=== PATIENT | male | born 1965 | race Caucasian/White ===

== ENCOUNTER 2017-01-14 17:30 | Emergency (ER) | payer BC ==
--- NOTE | 2017-01-14 18:56 | RAD ---
INDICATION: Fever and cough COMPARISON: None. TECHNIQUE: Single AP portable view of the chest was obtained. FINDINGS: Image quality is compromised due to the relative inferiority of a portable chest x-ray. The heart and mediastinum exhibit normal size and contour. The lungs are grossly clear. There is no evidence of a large pleural effusion. Visualized bones are normal for the patient's age. IMPRESSION: No radiographic evidence for acute cardiopulmonary abnormality on this portable chest x-ray.
[2017-01-14 19:09] LABS: Hematocrit 54 % (42-52); Hemoglobin 18.5 g/dl (14.0-18.0); Mean Corpuscular HGB Conc 34 g/dl (31-36); Mean Corpuscular Hemoglobin 33 pg (27-31); Mean Corpuscular Volume 96 fL (80-94); Mean Platelet Volume 8 um3 (7.4-10.4); Red Blood Count 5.64 10^6/ul (4.0-5.4); Red Cell Distribution Width 13 % (10.5-15); White Blood Count 8.2 10^3/ul (3.5-10.8)
[2017-01-14 19:10] LABS: Add Diff/Slide Review? Slide Review Added; Comments Flag Yes
[2017-01-14 19:20] LABS: Albumin 3.9 g/dL (3.2-5.2); BUN/Creatinine Ratio 11.9 (8-20); Calcium 9.8 mg/dL (8.6-10.3); EGFR African American 77.3 (>60); EGFR Non-African American 60.1 (>60); Globulin 3.9 g/dL (2-4); Potassium 3.9 mmol/L (3.5-5.0); Total Bilirubin 0.5 mg/dL (0.2-1.0); Total Protein 7.8 g/dL (6.4-8.9)
[2017-01-14] MEDS ORDERED: NS 0.9% 1000 ML* 2,000 ML IV ONE (19:36)
[2017-01-14] MEDS ORDERED: Acetaminophen TAB* 325 MG PO ONE (20:52)
[2017-01-14 20:58] LABS: C Reactive Protein 91.51 mg/L (< 5.00)
[2017-01-14 22:00] LABS: Erythrocyte Sed Rate 28 mm/Hr (0-20)
[2017-01-14] MEDS ORDERED: Lidocaine 1% INJ* 10 MG/ML 30 ML SDV ONE (22:06)
[2017-01-14] MEDS ORDERED: Ketorolac INJ* 30 MG/ML 1 ML VIAL IV PUSH ONE (22:35)
[2017-01-14 22:46] LABS: CSF Glucose 64 mg/dL (40-70)
[2017-01-14 22:55] VITALS: BP 135/85
[2017-01-14 23:12] LABS: BF RBC Count #1 0; BF RBC Count #2 0; BF WBC Count #1 1; BF WBC Count #2 1; Body Fluid Appearance Clear; RBC counts within 6%? Yes; WBC counts within 15%? Yes
[2017-01-14 23:21] LABS: Body Fluid Total Cells Counted 22
[2017-01-15 00:23] LABS: Body Fluid WBC 1 /mcL
[2017-01-15] MEDS ORDERED: Sulfamethox/Trimethoprim DS 800/160* TAB PO ONE (00:24)
[2017-01-15] MEDS ORDERED: Cephalexin CAP* 500 MG PO ONE (00:24)
[2017-01-17 15:11] LABS: Lyme Disease IgG Ab WB Negative (Negative)
--- NOTE | 2017-01-31 15:29 | ED ---
Maren Boss Edward, scribed for Xavi Benavidez MD on 01/14/17 at 1819 . Headache - HPI Summary HPI Summary: 51 y/o male presents to c/o a sudden onset, constant MATSON starting three days ago. The next day the patient had nausea, fatigue and the MATSON became severe. Yesterday the patient noticed red raised areas on the L ankle, R forearm, forehead, inside of thigh, and back. Per triage, the pt has felt feverish for the past three days. Associated sx: body aches, chills, diaphoresis, neck stiffness today, intermittent episodes of severe pain at the ribs lasting a couple of seconds, starting 3 weeks ago. Denies V/D, sore throat, photophobia, confusion and rhinorrhea. Patient lives in the [facility] and has had sick contact in his family. - History Of Current Complaint Chief Complaint: EDHeadache Stated Complaint: HEAD ACHE x3DAYS Time Seen by Provider: 01/14/17 18:15 Hx Obtained From: Patient Onset/Duration: Sudden Onset, Started days ago - Three days ago Initially Headache Was: Moderate Currently Pain Is: Severe Timing: Constant Associated Signs And Symptoms: Nausea, Fever - around 100, Neck Stiffness, Other (Noted In Comments) - body aches, chills, sweats, fatigue. Red spots on L ankle, R forearm, forehead, back and chest. No vomiting, diarrhea, sore throat, rhinorrhea, photophobia, or confusion - Allergies/Home Medications Allergies/Adverse Reactions: Allergies Allergy/AdvReac Type Severity Reaction Status Date / Time No Known Allergies Allergy Verified 09/14/15 12:38 PMH/Surg Hx/FS Hx/Imm Hx Previously Healthy: No Endocrine/Hematology History: Denies: Hx Diabetes Cardiovascular History: Denies: Hx Hypertension, Hx Pacemaker/ICD GI History: Reports: Hx Gastroesophageal Reflux Disease - PRN OMEPRAZOLE Musculoskeletal History: Reports: Hx Arthritis - RIGHT SHOULDER Sensory History: Reports: Hx Contacts or Glasses - GLASSES Denies: Hx Hearing Aid Opthamlomology History: Reports: Hx Contacts or Glasses - GLASSES Psychiatric History: Denies: Hx Panic Disorder - Surgical History Surgery Procedure, Year, and Place: RIGHT SHOULDER SURGERY- 8 YEARS AGO[place]. [place]03/[place] [place] Anesthesia Reactions: No - Immunization History Date of Tetanus Vaccine: unknown Date of Influenza Vaccine: UTD Infectious Disease History: No Infectious Disease History: Denies: Traveled Outside the [place] in Last 30 Days - Family History Known Family History: Positive: Cardiac Disease, Other - CA Negative: Diabetes - Social History Alcohol Use: Weekly Alcohol Amount: 4-6 BEERS PER WEEK Substance Use Type: Reports: Marijuana Smoking Status (MU): Current Some Day Smoker Amount Used/How Often: "CASUAL SMOKER"X 15 YEARS OFF AND ON Review of Systems Positive: Fever, Chills, Fatigue, Skin Diaphoresis, Other - Neck stiffness Negative: Photophobia, Erythema Negative: Sore Throat, Nasal Discharge - No rhinorrhea Negative: Chest Pain Negative: Shortness Of Breath, Cough Positive: Nausea. Negative: Abdominal Pain, Vomiting, Diarrhea Negative: dysuria, hematuria Musculoskeletal: Other - Body aches Positive: Arthralgia - Intermittent pain at ribs. Negative: Myalgia, Edema Positive: Rash - Red raised spots on L ankle, R forearm, forehead, chest and back Neurological: Other - No dizziness, no confusion Positive: Headache All Other Systems Reviewed And Are Negative: Yes Physical Exam - Summary Physical Exam Summary: Constitutional: Well-developed, Well-nourished, Alert. (-) Distressed. Skin: Warm, Dry. Flushed. Ecchymotic, raised, erythematous region @ L ankle. Smaller erythematous raised regions at the R arm, back and chest. HENT: Normocephalic; Atraumatic Eyes: Conjunctiva normal Neck: Musculoskeletal ROM normal neck. (-) JVD, (-) Stridor, (-) Tracheal deviation. No obvious meningismus. Cardio: Rhythm regular, rate normal, Heart sounds normal; Intact distal pulses; The pedal pulses are 2+ and symmetric. Radial pulses are 2+ and symmetric. (-) Murmur Pulmonary/Chest wall: Effort normal. (-) Respiratory distress, (-) Wheezes, (-) Rales Abd: Soft, (-) Tenderness, (-) Distension, (-) Guarding, (-) Rebound Musculoskeletal: (-) Edema Lymph: (-) Cervical adenopathy Neuro: Alert, Oriented x3 Psych: Mood and affect Normal Triage Information Reviewed: Yes Vital Signs On Initial Exam: Initial Vitals Temp Pulse Resp BP Pulse Ox 100.2 F 98 18 137/97 97 01/14/17 17:54 01/14/17 17:54 01/14/17 17:54 01/14/17 17:54 01/14/17 17:54 Vital Signs Reviewed: Yes - Sebas Coma Scale Coma Scale Total: 15 Procedures - Lumbar Puncture Position: Sitting Aseptic Technique: Local Anesthesia Anesthesia Used: 1.0% Lido Spinal Needle Used: 22 Gauge - 3.5 inch Lumbar Puncture Note: Failed attempt x2 laying on L side. Successful 1st time sitting up. L4 L5, clear fluid. Obtained 4 ml. Diagnostics - Vital Signs Vital Signs Temp Pulse Resp BP Pulse Ox 01/14/17 17:54 100.2 F 98 18 137/97 97 - Laboratory Lab Results: Lab Results 01/14/17 01/14/17 01/14/17 Range/Units 18:53 18:53 18:53 WBC 8.2 (3.5-10.8) 10^3/ul RBC 5.64 H (4.0-5.4) 10^6/ul Hgb 18.5 H (14.0-18.0) g/dl Hct 54 H (42-52) % MCV 96 H (80-94) fL MCH 33 H (27-31) pg MCHC 34 (31-36) g/dl RDW 13 (10.5-15) % Plt Count 231 (150-450) 10^3/ul MPV 8 (7.4-10.4) um3 Neut % (Auto) 60.0 (38-83) % Lymph % (Auto) 24.0 L (25-47) % Wagoner % (Auto) 13.3 H (1-9) % Eos % (Auto) 1.7 (0-6) % Baso % (Auto) 1.0 (0-2) % Absolute Neuts (auto) 4.9 (1.5-7.7) 10^3/ul Absolute Lymphs (auto) 2.0 (1.0-4.8) 10^3/ul Absolute Monos (auto) 1.1 H (0-0.8) 10^3/ul Absolute Eos (auto) 0.1 (0-0.6) 10^3/ul Absolute Basos (auto) 0.1 (0-0.2) 10^3/ul Absolute Nucleated RBC 0.01 10^3/ul Nucleated RBC % 0.1 ESR 28 H (0-20) mm/Hr INR (Anticoag Therapy) 1.01 (0.89-1.11) APTT 19.8 L (26.0-36.3) seconds Sodium 134 (133-145) mmol/L Potassium 3.9 (3.5-5.0) mmol/L Chloride 99 L (101-111) mmol/L Carbon Dioxide 27 (22-32) mmol/L Anion Gap 8 (2-11) mmol/L BUN 15 (6-24) mg/dL Creatinine 1.26 H (0.67-1.17) mg/dL Est GFR ( Amer) 77.3 (>60) Est GFR (Non-Af Amer) 60.1 (>60) BUN/Creatinine Ratio 11.9 (8-20) Glucose 99 (70-100) mg/dL Lactic Acid (0.5-2.0) mmol/L Calcium 9.8 (8.6-10.3) mg/dL Total Bilirubin 0.50 (0.2-1.0) mg/dL AST 35 (13-39) U/L ALT 41 (7-52) U/L Alkaline Phosphatase 90 (34-104) U/L C-Reactive Protein 91.51 H (< 5.00) mg/L Total Protein 7.8 (6.4-8.9) g/dL Albumin 3.9 (3.2-5.2) g/dL Globulin 3.9 (2-4) g/dL Albumin/Globulin Ratio 1.0 (1-3) Fluid Source Fluid Volume mL Fluid Color Fluid Appearance Fluid WBC /mcL Fluid RBC /mcL Fluid Tot Cell Count Fluid Neutrophils Fluid Lymphocytes % Fluid Monocytes % Fluid Cell Count Rvw By CSF Cell Count Tube # CSF Glucose (40-70) mg/dL CSF Total Protein (15-45) mg/dL 01/14/17 01/14/17 01/14/17 Range/Units 18:53 22:22 22:22 WBC (3.5-10.8) 10^3/ul RBC (4.0-5.4) 10^6/ul Hgb (14.0-18.0) g/dl Hct (42-52) % MCV (80-94) fL MCH (27-31) pg MCHC (31-36) g/dl RDW (10.5-15) % Plt Count (150-450) 10^3/ul MPV (7.4-10.4) um3 Neut % (Auto) (38-83) % Lymph % (Auto) (25-47) % Wagoner % (Auto) (1-9) % Eos % (Auto) (0-6) % Baso % (Auto) (0-2) % Absolute Neuts (auto) (1.5-7.7) 10^3/ul Absolute Lymphs (auto) (1.0-4.8) 10^3/ul Absolute Monos (auto) (0-0.8) 10^3/ul Absolute Eos (auto) (0-0.6) 10^3/ul Absolute Basos (auto) (0-0.2) 10^3/ul Absolute Nucleated RBC 10^3/ul Nucleated RBC % ESR (0-20) mm/Hr INR (Anticoag Therapy) (0.89-1.11) APTT (26.0-36.3) seconds Sodium (133-145) mmol/L Potassium (3.5-5.0) mmol/L Chloride (101-111) mmol/L Carbon Dioxide (22-32) mmol/L Anion Gap (2-11) mmol/L BUN (6-24) mg/dL Creatinine (0.67-1.17) mg/dL Est GFR ( Amer) (>60) Est GFR (Non-Af Amer) (>60) BUN/Creatinine Ratio (8-20) Glucose (70-100) mg/dL Lactic Acid 1.2 (0.5-2.0) mmol/L Calcium (8.6-10.3) mg/dL Total Bilirubin (0.2-1.0) mg/dL AST (13-39) U/L ALT (7-52) U/L Alkaline Phosphatase (34-104) U/L C-Reactive Protein (< 5.00) mg/L Total Protein (6.4-8.9) g/dL Albumin (3.2-5.2) g/dL Globulin (2-4) g/dL Albumin/Globulin Ratio (1-3) Fluid Source Cerebral spinal Fluid Volume 1 mL Fluid Color Colorless Fluid Appearance Clear Fluid WBC 1 /mcL Fluid RBC 0 /mcL Fluid Tot Cell Count 22 Fluid Neutrophils Not Reportable Fluid Lymphocytes 64 % Fluid Monocytes 36 % Fluid Cell Count Rvw By Pending CSF Cell Count Tube # 4 CSF Glucose 64 (40-70) mg/dL CSF Total Protein 38 (15-45) mg/dL Result Diagrams: 01/14/17 18:53 01/14/17 18:53 Lab Statement: Any lab studies that have been ordered have been reviewed, and results considered in the medical decision making process. - Radiology CXR Xray Interpretation: No Acute Changes - No radiographic evidence for acute cardiopulmonary abnormality on this portable chest x-ray. Radiology Interpretation Completed By: Radiologist Re-Evaluation - Re-Evaluation First Eval Re-Evaluation Time: 00:30 Change: Improved - fever has resolved, flushing resolved, l ankle lesion still hot to touch, no joint effusion, suspect cellulitis with autoinnoculation of other sites Headache Course/Dx - Course Assessment/Plan: 51 y/o male presents to c/o a sudden onset, constant MATSON starting three days ago. The next day the patient had nausea, fatigue and the MATSON became severe. Yesterday the patient noticed red raised areas on the L ankle , R forearm, forehead, inside of thigh, and back. Per triage, the pt has felt feverish for the past three days. Associated sx: body aches, chills, diaphoresis , neck stiffness today, intermittent episodes of severe pain at the ribs lasting a couple of seconds, starting 3 weeks ago. Denies V/D, sore throat, photophobia, confusion and rhinorrhea. Patient lives in the [facility] and has had sick contact in his family. CXR SHOWS No radiographic evidence for acute cardiopulmonary abnormality on this portable chest x-ray. LP performed in ED course (see procedure note). - Diagnoses Provider Diagnoses: Cellulitis, leg Discharge - Discharge Plan Condition: Stable Disposition: HOME Prescriptions: Cephalexin CAP* [Keflex CAP*] 500 mg PO QID #40 cap Sulfamethox/Trimethoprim DS* [Bactrim DS 800/160 TAB*] 1 tab PO BID #20 tab Patient Education Materials: Cellulitis (ED) Referrals: Humberto Tamayo MD [Primary Care Provider] - 2 Days The documentation as recorded by the Maren sanchez Edward accurately reflects the service I personally performed and the decisions made by Pramod guzman Jerry, MD.
== END 2017-01-15 00:40 | disposition home or self-care (01) ==
LOC: ED 17:30
DX: L03.119 Cellulitis of unspecified part of limb (principal)
CPT/HCPCS: 36415; 71010; 80053; 82945; 83605; 84157; 85025; 85610; 85652; 85730; 86140; 86617; 86618; 87040; 87070; 87205; 87476; 89051; 99282; A9270-GY; J1885; J2001

== ENCOUNTER 2020-02-10 05:49 | Observation (INO) ==
[2020-02-10] MEDS ORDERED: Lactated Ringers 1000 ml BAG 1,000 ML IV SCH (06:00)
[2020-02-10] MEDS ORDERED: Buffered Lidocaine 1% SYRIN 1 ml INTRADERM ONE ×2 (06:00→06:19)
[2020-02-10] MEDS ORDERED: ceFAZolin 2 GM PREMIX 2 GM/50 ML BAG ONE (06:19)
[2020-02-10] MEDS ORDERED: Succinylcholine 200 mg VIAL 20 mg/ml 10 ml VIAL (200 mg) ONE (06:47)
[2020-02-10] MEDS ORDERED: Lidocaine 2% PF 5 ML VIAL ONE (06:48)
[2020-02-10] MEDS ORDERED: Ondansetron 4 mg VIAL 2 MG/ML 2 ml VIAL ONE (06:48)
[2020-02-10] MEDS ORDERED: Propofol 10 MG/ML 20 ML BTL ONE (06:48)
[2020-02-10] MEDS ORDERED: Dexamethasone IV 4 MG/ML VIAL 1 ml VIAL ONE ×2 (06:48→08:03)
[2020-02-10] MEDS ORDERED: EPHEDrine (Pressors) 50 MG/ML VIAL ONE (06:48)
[2020-02-10] MEDS ORDERED: Metoclopramide 5 MG/ML VIAL (10 mg) ONE (06:48)
[2020-02-10] MEDS ORDERED: Sterile Water for Inj 10 ML ONE (06:48)
[2020-02-10] MEDS ORDERED: Rocuronium 50 mg VIAL 10 mg/ml 5 ml VIAL (50 mg) ONE (06:49)
[2020-02-10] MEDS ORDERED: Midazolam 2 mg/2 ml VIAL 1 mg/ml 2 ml VIAL (2 mg) ONE (06:50)
[2020-02-10] MEDS ORDERED: fentaNYL 250 mcg/5 ml 50 MCG/ML 5 ml VIAL (250 MCG) ONE (06:50)
[2020-02-10] MEDS ORDERED: Phenylephrine IV 10 MG/ML 1 ml VIAL ONE (06:52)
[2020-02-10] MEDS ORDERED: Bacitracin INJECTION 50,000 UNITS ONE (06:56)
[2020-02-10] MEDS ORDERED: HYDROmorphone 1 MG/1 ML SYRINGE ONE (08:03)
[2020-02-10] MEDS ORDERED: Phenylephrine 40 mcg/mL 10mL (400mcg) SYRINGE ONE (08:16)
[2020-02-10] MEDS ORDERED: Sugammadex 500 MG/5 ML 5 ml VIAL IV PUSH ONE (08:32)
[2020-02-10] MEDS ORDERED: Ondansetron 4 mg VIAL 2 MG/ML 2 ml VIAL IV PRN ×2 (09:45→09:54)
[2020-02-10] MEDS ORDERED: Naloxone 0.4 mg VIAL 0.4 mg/ml 1 ml VIAL IV PRN (09:45)
[2020-02-10] MEDS ORDERED: HYDROcodone/ACETAMIN 5/325 mg TAB PO PRN (09:54)
[2020-02-10] MEDS ORDERED: Magnesium Hydroxide LIQ 30 ML UDC PO PRN (09:54)
[2020-02-10] MEDS ORDERED: fentaNYL 100 mcg/2 ml 50 MCG/ML VIAL ONE (09:55)
[2020-02-10] MEDS: fentaNYL 100 mcg/2 ml 50 MCG/ML VIAL IV PRN ×2 (09:56→10:06)
[2020-02-10] MEDS ORDERED: HYDROcodone/ACETAMIN 5/325 mg TAB ONE (10:41)
[2020-02-10] MEDS: HYDROcodone/ACETAMIN 5/325 mg TAB PO PRN ×3 (10:43→19:36)
[2020-02-11 07:28] VITALS: BP 144/87
[2020-02-11] MEDS ORDERED: oxyCODONE/Acetamin 5/325 mg TAB PO PRN ×2 (08:16→08:17)
== END 2020-02-11 12:01 | disposition home or self-care (01) ==
LOC: SSU 05:49 → OR 05:49
PROVIDERS: ADMIT Neurological Surgery; ATTEND Internal Medicine